=== PATIENT | female | born 1970 | race Caucasian/White ===

== ENCOUNTER 2018-05-25 13:15 | Emergency (ER) | payer MEDICAID, OTHER ==
--- NOTE | 2018-05-25 13:51 | ED PDOC ---
HPI: Abdomen Time Seen by Provider: 05/25/18 13:43 Chief Complaint (Nursing): Abdominal Pain History Per: Patient Onset/Duration Of Symptoms: Days (3) Current Symptoms Are (Timing): Still Present Severity: Moderate Location Of Pain/Discomfort: LLQ Quality Of Discomfort: Unable To Describe Associated Symptoms: Fever. denies: Nausea, Vomiting, Diarrhea, Urinary Symptoms Exacerbating Factors: None Alleviating Factors: None Additional Complaint(s): LLQ abd pain x 3 days. Denies NVD. No urinary sxs. Subjective fever. Pain improves with urination. Past Medical History Vital Signs: Last Vital Signs Temp 98.5 F 05/25/18 13:19 Pulse 82 05/25/18 14:43 Resp 18 05/25/18 14:43 BP 135/66 05/25/18 14:43 Pulse Ox 100 05/25/18 14:43 - Medical History PMH: No Chronic Diseases - Family History Family History: States: Unknown Family Hx - Home Medications Home Medications: Ambulatory Orders Medication Instructions Recorded Metformin HCl [Glucophage] 500 mg PO BID #30 tablet 05/25/18 Naproxen [Naprosyn] 500 mg PO Q12H #20 tab 05/25/18 - Allergies Allergies/Adverse Reactions: Allergies Allergy/AdvReac Type Severity Reaction Status Date / Time No Known Allergies Allergy Verified 05/25/18 13:19 Review of Systems ROS Statement: Except As Marked, All Systems Reviewed And Found Negative Constitutional: Positive for: Fever Gastrointestinal: Positive for: Abdominal Pain Physical Exam - Reviewed Nursing Documentation Reviewed: Yes Vital Signs Reviewed: Yes - Physical Exam Appears: Positive for: Non-toxic, No Acute Distress Head Exam: Positive for: ATRAUMATIC, NORMAL INSPECTION, NORMOCEPHALIC Skin: Positive for: Normal Color, Warm, DRY Eye Exam: Positive for: EOMI, Normal appearance, PERRL ENT: Positive for: Normal ENT Inspection Neck: Positive for: Normal, Painless ROM Cardiovascular/Chest: Positive for: Regular Rate, Rhythm Respiratory: Positive for: CNT, Normal Breath Sounds Gastrointestinal/Abdominal: Positive for: Soft, Tenderness (LLQ) Back: Positive for: Normal Inspection Extremity: Positive for: Normal ROM Neurologic/Psych: Positive for: Alert, Oriented - Laboratory Results Result Diagrams: 05/25/18 14:00 05/25/18 14:00 - ECG O2 Sat by Pulse Oximetry: 96 - Progress Re-evaluation Time: 16:55 Condition: Improved (Abd pain improved no vomiting repeat accucheck 211) Disposition - Clinical Impression Clinical Impression: Ruptured ovarian cyst, Diabetes - Patient ED Disposition Is Patient to be Admitted: No Counseled Patient/Family Regarding: Studies Performed, Diagnosis, Need For Followup, Rx Given - Disposition Referrals: [facility] [Outside] Disposition: Routine/Home Disposition Time: 16:55 Condition: FAIR Prescriptions: Metformin HCl [Glucophage] 500 mg PO BID #30 tablet Naproxen [Naprosyn] 500 mg PO Q12H #20 tab Instructions: Ovarian Cysts, Hyperglycemia, Adult Forms: [facility] ([place]) Print Language: QATARI
[2018-05-25 14:19] LABS: BASO % 0.5 % (0.0-2.0); EOS # 0.1 K/uL (0.0-0.7); EOS % 1.2 % (0.0-4.0); HEMOGLOBIN 15.1 g/dL (12.0-16.0); LYMPH # 2.2 K/uL (1.0-4.3); LYMPH % 26.5 % (20.0-40.0); MEAN CELL VOLUME 88.9 fl (81.0-99.0); MEAN CORPUSCULAR HEMOGLOBIN 30.8 pg (27.0-31.0); MEAN CORPUSCULAR HGB CONC 34.7 g/dL (33.0-37.0); MEAN PLATELET VOLUME 9.1 fl (7.2-11.7); MONO % 12.5 % (0.0-10.0); NEUT # 4.9 K/uL (1.8-7.0); NEUT % 59.3 % (50.0-75.0); RBC 4.9 Mil/uL (3.80-5.20); RED CELL DISTRIBUTION WIDTH 13.8 % (11.5-14.5); WHITE BLOOD COUNT 8.3 K/uL (4.8-10.8)
[2018-05-25 14:29] LABS: ALB/GLOB RATIO 1.4 (1.0-2.1); ALBUMIN 4.2 g/dL (3.5-5.0); ALT/SGPT 97 U/L (9-52); AST/SGOT 64 U/L (14-36); BLOOD UREA NITROGEN 8 mg/dl (7-17); CALCIUM 8.9 mg/dL (8.4-10.2); GFR AFRICAN-AMERICAN > 60; GFR NON-AFRICAN AMERICAN > 60
[2018-05-25] MEDS ORDERED: Insulin Regular 100 units/ml SC STA (14:37)
[2018-05-25] MEDS ORDERED: Insulin Regular 100 units/ml ONE (14:41)
[2018-05-25] MEDS ORDERED: Sodium Chloride 0.9% 50 ML IV ONE (15:41)
[2018-05-25] MEDS ORDERED: Iodixanol 320 MG/ML 100 ML BOTTLE IV ONE (15:41)
[2018-05-25] MEDS ORDERED: Iohexol 300 100 ML IJ ONE (15:42)
--- NOTE | 2018-05-25 16:52 | CT ---
Date of service: 05/25/2018 PROCEDURE: CT Abdomen and Pelvis with contrast HISTORY: Abdominal pain. Feeder. Negative test (concurrent with this examination). COMPARISON: None. TECHNIQUE: Contrast dose: 95 cc Omnipaque 300 Radiation dose: Total exam DLP = 757.20 mGy-cm. This CT exam was performed using one or more of the following dose reduction techniques: Automated exposure control, adjustment of the mA and/or kV according to patient size, and/or use of iterative reconstruction technique. FINDINGS: LOWER THORAX: Unremarkable. LIVER: Hepatic steatosis. No focal masses. No intrahepatic bile duct dilatation or perihepatic ascites. GALLBLADDER AND BILE DUCTS: Cholelithiasis without CT evidence of acute cholecystitis. PANCREAS: Unremarkable. No gross lesion or ductal dilatation. SPLEEN: Unremarkable. ADRENALS: Unremarkable right adrenal gland. Enlarged left adrenal gland measuring 1.8 x 2.1 cm. KIDNEYS AND URETERS: Unremarkable. No hydronephrosis. No solid mass. VASCULATURE: Unremarkable. No aortic aneurysm. BOWEL: Unremarkable. No obstruction. No gross mural thickening. APPENDIX: Normal appendix. PERITONEUM: Unremarkable. No free fluid. No free air. LYMPH NODES: Unremarkable. No enlarged lymph nodes. BLADDER: Unremarkable. REPRODUCTIVE: Bilateral adnexal cysts/ follicles. Including contrast-enhancing characteristics on the left to suggest recently ruptured cyst. BONES: No acute fracture. OTHER FINDINGS: None. IMPRESSION: Cholelithiasis without CT evidence of acute cholecystitis. Bilateral adnexal cysts including 1 likely ruptured on the left. Additional benign and/or incidental findings described above.
[2018-05-25 17:26] VITALS: BP 132/71; PULSE 77; RESP 16; TEMP 98.2; O2SAT 99
== END 2018-05-25 17:26 | disposition home or self-care (01) ==
LOC: H.ER 13:15
DX: N83.292 Other ovarian cyst, left side (principal); E11.9 Type 2 diabetes mellitus without complications; R73.9 Hyperglycemia, unspecified
CPT/HCPCS: 74177; 80053; 81025; 82948; 85025; 96372; 99284; Q9967

== ENCOUNTER 2018-08-11 15:29 | Emergency (ER) | payer SELFPAY ==
[2018-08-11 15:41] VITALS: RESP 16; TEMP 98.2; O2SAT 99
[2018-08-11] MEDS ORDERED: Sodium Chloride 0.9% 1,000 ML IV STA ×2 (16:44→16:54)
--- NOTE | 2018-08-11 16:57 | ED PDOC ---
HPI: General Adult Time Seen by Provider: 08/11/18 16:18 Chief Complaint (Nursing): Chest Pain Chief Complaint (Provider): Headache, nausea History Per: Patient History/Exam Limitations: no limitations Onset/Duration Of Symptoms: Days (2) Have you had recent travel within the past 21 days to any of the following countries: [place], [place], [place] or [place]?: No Current Symptoms Are (Timing): Still Present Additional History Per: Patient Additional Complaint(s): 48yo female, history of diabetes, and otherwise well, comes to ER reporting headache and nausea x 2 days. Patient reports at noon today, she had an episode of non-bilious, non-bloody vomiting s/p eating foot. She reports while attempting to stand, she is feeling dizzy and has to sit and lie down. She reports attempting to take her metformin on an empty stomach after which she felt nauseous and has not taken any since. She is able to tolerate food intake otehrwise. Patient denies any chest pain but states she has generalized pain all over. She denies any urinary symptoms, rash, fever and offers no additional complaints. Patient is otherwise well and compliant w/ her medications. Past Medical History Reviewed: Historical Data, Nursing Documentation, Vital Signs Vital Signs: Last Vital Signs Temp 98.2 F 08/11/18 15:36 Pulse 78 08/11/18 15:36 Resp 16 08/11/18 15:36 BP 144/78 08/11/18 15:36 Pulse Ox 99 08/11/18 15:36 - Medical History PMH: Diabetes - Surgical History Surgical History: No Surg Hx - Family History Family History: States: No Known Family Hx - Home Medications Home Medications: Ambulatory Orders Medication Instructions Recorded Metformin HCl [Glucophage] 500 mg PO BID #30 tablet 05/25/18 Naproxen [Naprosyn] 500 mg PO Q12H #20 tab 05/25/18 - Allergies Allergies/Adverse Reactions: Allergies Allergy/AdvReac Type Severity Reaction Status Date / Time No Known Allergies Allergy Verified 08/11/18 15:35 Review of Systems ROS Statement: Except As Marked, All Systems Reviewed And Found Negative Constitutional: Positive for: Malaise Cardiovascular: Negative for: Chest Pain Respiratory: Negative for: Shortness of Breath Gastrointestinal: Positive for: Nausea, Vomiting. Negative for: Abdominal Pain Neurological: Positive for: Dizziness Physical Exam - Reviewed Nursing Documentation Reviewed: Yes Vital Signs Reviewed: Yes - Physical Exam Appears: Positive for: Non-toxic, No Acute Distress Head Exam: Positive for: ATRAUMATIC, NORMAL INSPECTION, NORMOCEPHALIC Skin: Positive for: Normal Color, Warm, DRY Eye Exam: Positive for: Normal appearance Neck: Positive for: Normal, Painless ROM Cardiovascular/Chest: Positive for: Regular Rate, Rhythm Respiratory: Positive for: CNT, Normal Breath Sounds Gastrointestinal/Abdominal: Positive for: Normal Exam, Soft. Negative for: Tenderness, Guarding, Rebound Back: Positive for: Normal Inspection. Negative for: L CVA Tenderness, R CVA Tenderness, Vertebral Tenderness Extremity: Positive for: Normal ROM. Negative for: Pedal Edema Neurologic/Psych: Positive for: Alert, Oriented. Negative for: Motor/Sensory Deficits - Laboratory Results Result Diagrams: 08/11/18 17:00 08/11/18 17:00 - ECG O2 Sat by Pulse Oximetry: 99 (RA) Pulse Ox Interpretation: Normal Medical Decision Making Medical Decision Making: Impression: 48yo female with headache and nausea Plan: Finger stick upon arrival indicates elevated blood sugar. EKG reviewed: NSR 74 R/o hyperglycemia. IV Fluids initiated. Patient given medication for nausea and pain. No imaging indicated at this time. Scribe Attestation: Documented by Maria Ines Richardson, acting as a scribe for Lena Mathew MD. Provider Scribe Attestation: All medical record entries made by the Scribe were at my direction and personally dictated by me. I have reviewed the chart and agree that the record accurately reflects my personal performance of the history, physical exam, medical decision making, and the department course for this patient. I have also personally directed, reviewed, and agree with the discharge instructions and disposition. Improved symptoms with GI coctail and IV fluids. Blood sugar only mildly improved but patient states her finger stick has not been under 300 for about a year. Pt informed to follow up with primary medical doctor for stronger diabetes control. Labs otherwise within normal limits. Return parameters discussed with the patient and her family. Disposition - Clinical Impression Clinical Impression: Hyperglycemia, Vomiting - Patient ED Disposition Is Patient to be Admitted: No - Disposition Disposition: Routine/Home Disposition Time: 18:49 Condition: IMPROVED Instructions: Hyperglycemia, Adult (DC), Nausea and Vomiting, Adult (DC) Forms: [employer] (Martiniquais)
[2018-08-11 17:21] LABS: BASO % 0.4 % (0.0-2.0); EOS % 0.4 % (0.0-4.0); HEMOGLOBIN 15.7 g/dL (12.0-16.0); LYMPH # 1.6 K/uL (1.0-4.3); LYMPH % 20.9 % (20.0-40.0); MEAN CELL VOLUME 88.7 fl (81.0-99.0); MEAN CORPUSCULAR HEMOGLOBIN 30.8 pg (27.0-31.0); MEAN CORPUSCULAR HGB CONC 34.7 g/dL (33.0-37.0); MEAN PLATELET VOLUME 8.9 fl (7.2-11.7); MONO # 0.6 K/uL (0.0-0.8); MONO % 8.2 % (0.0-10.0); NEUT # 5.3 K/uL (1.8-7.0); NEUT % 70.1 % (50.0-75.0); NRBC % 0.2 % (0.0-0.0); RBC 5.11 Mil/uL (3.80-5.20); RED CELL DISTRIBUTION WIDTH 13.1 % (11.5-14.5); WHITE BLOOD COUNT 7.6 K/uL (4.8-10.8)
[2018-08-11 17:35] LABS: ALB/GLOB RATIO 1.5 (1.0-2.1); ALBUMIN 4.6 g/dL (3.5-5.0); ALT/SGPT 167 U/L (9-52); AST/SGOT 108 U/L (14-36); BLOOD UREA NITROGEN 14 mg/dl (7-17); CALCIUM 9.4 mg/dL (8.4-10.2); GFR NON-AFRICAN AMERICAN > 60; LIPASE 81 U/L (23-300)
[2018-08-11 19:13] VITALS: BP 134/81; PULSE 87
--- NOTE | 2018-08-12 12:29 | RAD ---
Date of service: 08/11/2018 HISTORY: Shortness of breath COMPARISON: No prior. FINDINGS: LUNGS: No active pulmonary disease. PLEURA: No pleural effusion identified, no pneumothorax apparent. CARDIOVASCULAR: Normal. OSSEOUS STRUCTURES: No significant abnormalities. VISUALIZED UPPER ABDOMEN: Normal. OTHER FINDINGS: None. IMPRESSION: No active disease.
== END 2018-08-11 19:13 | disposition home or self-care (01) ==
LOC: H.ER 15:29
DX: E11.65 Type 2 diabetes mellitus with hyperglycemia (principal); R11.10 Vomiting, unspecified
CPT/HCPCS: 71045; 80053; 81025; 82948; 83690; 84484; 85025; 96374; 99284; J2405; J7030